=== PATIENT | female | born 1965 | race Caucasian/White ===

== ENCOUNTER 2018-11-12 16:35 | Inpatient (IN) | payer SELFPAY ==
--- NOTE | 2018-11-12 17:17 | RAD ---
PORTABLE CHEST: HISTORY: Cough. FINDINGS: Lungs appear clear of infiltrate. Vascular markings up-per normal. Heart size within normal range. No significant change from a film taken earlier today at 2:01 p.m. IMPRESSION: No acute finding or interval change. POS: TERESITAH
[2018-11-12] MEDS ORDERED: Norepinephrine 8 MG/0.9% NS 250 ML ONE (18:37)
[2018-11-12 18:50] VITALS: BMI 21.2
[2018-11-12] MEDS ORDERED: Norepinephrine 8 MG/250 ML BAG IVPB PRN (18:59)
[2018-11-12] MEDS ORDERED: guaiFENesin 100 MG/5 ML UDCUP PO PRN (20:21)
[2018-11-12] MEDS ORDERED: Acetaminophen 325 MG TAB PO PRN ×2 (20:21→20:41)
[2018-11-12] MEDS ORDERED: Albuterol Sulfate 1.25 MG/3 ML NEB NEB PRN (20:21)
[2018-11-12] MEDS ORDERED: Ondansetron PF 4 MG/2 ML Vial IVP PRN (20:21)
[2018-11-12] MEDS ORDERED: Melatonin 3 MG TAB PO PRN (20:21)
[2018-11-12] MEDS ORDERED: Bisacodyl 5 MG TAB PO PRN (20:21)
[2018-11-12] MEDS ORDERED: Norepinephrine 8 MG/0.9% NS 250 ML IVPB SCH (20:30)
[2018-11-12] MEDS ORDERED: Sodium Chloride 0.9% 1,000 ML IV SCH (20:30)
[2018-11-12] MEDS ORDERED: Vancomycin HCl 1.75 GM in Sodium Chloride 0.9% 250 ML 250 ML IVPB SCH (21:00)
[2018-11-12] MEDS ORDERED: Potassium Chloride 40 MEQ in Premix Bag 1 BAG IVPB SCH (21:00)
[2018-11-12 21:19] LABS: CKMB 16.8 ng/mL (0-6.6)
--- NOTE | 2018-11-12 21:35 | HP ---
PRIMARY CARE PHYSICIAN: Dr. Jethro Diaz. CHIEF COMPLAINT: Dehydration and not feeling well. HISTORY OF PRESENT ILLNESS: The patient is a 53-year-old female with past medical history of hypertension and intermittent asthma, who was transferred from [place] for UTI and septic shock. The patient reports that she has not been feeling well since Monday, complained about dehydration and dry mouth and reports that she has not been able to urinate since then. The patient also reported nausea and vomiting. The patient reports mild shortness of breath. The patient reports that she uses inhaler once in a while. The patient takes metoprolol for her blood pressure medication. The patient was started on Levophed and given vancomycin and Rocephin in the ER. PAST MEDICAL HISTORY: Hypertension and intermittent asthma. PAST SURGICAL HISTORY: Gallbladder removed. SOCIAL HISTORY: The patient smokes less than half a pack per day. Denies alcohol or drug use. FAMILY HISTORY: Positive for cancer in mother and father, specifically lung cancer and bone cancer. ALLERGIES: NAPROXEN. CURRENT MEDICATION: Includes metoprolol and trazodone at bedtime. REVIEW OF SYSTEMS: A 10-point review of system negative other than mentioned in the HPI. PHYSICAL EXAMINATION: VITAL SIGNS: The patient's blood pressure 106/62, pulse 117, respiration rate 26, temperature 98.4, and sat 94% on room air. GENERAL: The patient is alert and appears to be a bit more dehydrated, but she is cooperative and able to answer all my questions. HEAD: Atraumatic. EARS, NOSE, AND THROAT: No discharge or bleeding noted. Mouth appears to be dry. NECK: No lymphadenopathy noted. EYES: Extraocular movement intact. HEART: Regular rate and rhythm. No murmurs, rubs, or gallops. PULMONARY: Clear bilaterally. No wheezes or rubs noted. ABDOMEN: Soft, nontender. Bowel sounds are positive. : The patient has a Farrell. EXTREMITIES: Lower extremity examination, the patient appeared to have erythema on her heel. The patient also appeared to have erythema in her coccygeal area. NEUROLOGIC: The patient is alert and cooperative. SKIN: Other than mentioned in the extremity examination, negative. LABORATORY DATA: White blood cell count 23, hemoglobin 14.7, hematocrit 44.4, and platelets 194. Sodium 130, potassium 3.3, chloride 93, bicarb 14, anion gap 26, creatinine 1.99, glucose 120, AST 99, and ALT 123. The alkaline phosphatase 509. Urinalysis positive for protein, ketones, moderate blood, nitrites negative, leukocyte esterase negative, wbc positive, squamous epithelial positive, transitional epithelial positive, bacteria positive. Lactic acid 3.3. Troponin 0.01. Chest x-ray negative for acute cardiopulmonary abnormalities. ASSESSMENT: 1. Septic shock, likely due to urinary tract infection. 2. Lactic acidosis. 3. Metabolic acidosis. 4. Leukocytosis. 5. Hyponatremia. 6. Hypokalemia. 7. Acute kidney injury. 8. Transaminitis. 9. Hypertension. 10. Intermittent asthma. 11. Cough. PLAN: The patient's septic shock likely from urinary tract infection. Will suspect pyelonephritis at this point. The patient was started on Levophed and still is on the drip. We will continue Levophed at this point. The patient was given 5 L of fluids in the ER. We will continue IV fluids. We will continue vancomycin and Zosyn. Follow up cultures. The womens health nurse practitioner was consulted as patient is in septic shock. The patient's lactic acid and transaminitis likely from her septic shock. We will continue to follow on the labs and continue IV fluids. The patient's creatinine elevated at 1.99. Baseline unknown, but suspect the patient is having acute kidney injury likely due to post renal obstruction. The patient may have ATN as well. We will continue IV fluids. We will continue Farrell at this point. We will get an ultrasound renal and labs in the morning. Hypertension. We will hold home metoprolol due to patient being in septic shock. Intermittent asthma. We will add albuterol p.r.n. Cough likely from dry mouth and dehydration. Chest x-ray negative for acute infection. Physical examination also negative as well. Will add Robitussin p.r.n. at this point. We will continue home trazodone for insomnia. We will add melatonin p.r.n. as well. Replete electrolyte as needed. The patient is full code. Medical [id number], daughter. DVT prophylaxis, heparin. Wound Care consult placed for erythema noted on extremities and coccygeal. Job ID: [id number]
[2018-11-12] MEDS: traZODone HCl 50 MG TAB PO PRN (21:52)
[2018-11-12] MEDS: Sodium Chloride 0.9% 1,000 ML IV SCH (21:53)
[2018-11-12 21:57] LABS: Lactic Acid 3.3 mmol/L (0.5-2.2)
[2018-11-12] MEDS ORDERED: Diabetic Tussin 200 MG/10 ML UDCUP PO PRN (22:00)
[2018-11-12] MEDS: Heparin 5,000 UNITS/ML VIAL SC SCH (22:10)
[2018-11-12] MEDS: Nicotine 14 MG PATCH TD SCH (22:10)
[2018-11-13 04:58] LABS: Band 6 % (5-11); Hemoglobin 11.5 g/dL (12.0-16.0); Lymphocytes 2 % (21-51); MDiff Complete? YES; Mean Corpuscular HGB CONC 32.3 g/dL (32.0-36.0); Mean Corpuscular Hemoglobin 30.8 pg (27.0-31.0); Mean Corpuscular Volume 95.3 fL (78.0-98.0); Mean Platelet Volume 7.8 fL (7.4-10.4); Monocytes 9 % (0-10); Neutrophil 83 % (42-75); Platelet Count 114 thou/uL (130-400); Platelet Morphology Comment Appears Decreased; RBC Distribution Width 13.1 % (11.5-14.5); RBC Morphology Normal; Red Blood Cell (RBC) Count 3.73 mill/uL (4.20-5.40); White Blood Cell (WBC) Count 38.1 thou/uL (4.8-10.8)
[2018-11-13 05:01] LABS: ALT (SGPT) 152 U/L (8-55); AST (SGOT) 170 U/L (5-34); Alkaline Phosphatase 258 U/L (40-150); Anion Gap 15 mmol/L (10-20); BUN (Urea Nitrogen) 21 mg/dL (9.8-20.1); Bilirubin, Direct 3.1 mg/dL (0.1-0.3); Bilirubin, Total 3.8 mg/dL (0.2-1.2); Calc. Creatinine Clearance 49 mL/min (70-130); Calcium 7.6 mg/dL (7.8-10.44); Carbon Dioxide 14 mmol/L (22-29); Chloride 106 mmol/L (98-107); Estimated GFR-MDRD 48; Glucose 85 mg/dL (70-105); Potassium 4.2 mmol/L (3.5-5.1); Protein, Total 5.2 g/dL (6.0-8.3); Sodium 131 mmol/L (136-145)
[2018-11-13 05:23] LABS: HBCM Index 0.06 S/CO (0-0.79); HBSAg Index 0.21 S/CO (0-0.99); Hep A IgM AB Non-Reactive (NonReactive); Hep A IgM S/CO 0.11 S/CO (0-0.79); Hep B Surf Ag Non-Reactive S/CO (NonReactive); Hep C IgG Ab Non-Reactive (NonReactive); Hep C Index 0.03 S/CO (0-0.79); Hepatitis B Core IgM Abs Non-Reactive (NonReactive)
[2018-11-13 05:44] LABS: Lactic Acid 1.7 mmol/L (0.5-2.2)
[2018-11-13] MEDS: Sodium Chloride 0.9% 1,000 ML IV SCH ×2 (05:58→17:07)
--- NOTE | 2018-11-13 06:44 | ULT ---
GALLBLADDER ULTRASOUND: INDICATIONS: Elevated liver functions. FINDINGS: There is heterogeneous echotexture of the liver, with increased echogenicity present. The gallbladde r is surgically absent. There is evidence of choledocholithiasis with dilatation of the surrounding biliary ductal system. No ascites is seen. The imaged aspects of the right kidney do not reveal rudi dence of hydronephrosis. IMPRESSION: 1. Sonographic findings of choledocholithiasis. The patient is status post cholecystectomy. Recomm end followup with a gastroenterology consultation. 2. Heterogeneous echotexture of the liver with areas of increased echogenicity that could either rel ate to artifact or could represent geographic areas of hepatic steatosis. POS: NICOLAS
--- NOTE | 2018-11-13 06:45 | ULT ---
BILATERAL RENAL ULTRASOUND: INDICATIONS: Acute renal insufficiency. FINDINGS: The right kidney is approximately 11 cm in length, and the left kidney is approximately 10 cm in hilary th. There is no overt hydronephrosis or suspicious renal lesion. The urinary bladder is decompresse d, limiting assessment. IMPRESSION: No overt hydronephrosis of either kidney. POS: TEJINDERK
[2018-11-13] MEDS: Heparin 5,000 UNITS/ML VIAL SC SCH ×3 (08:55→21:26)
--- NOTE | 2018-11-13 09:02 | PDOC.PN ---
- Subjective Encounter Start Date: 11/13/18 Encounter Start Time: 09:00 Ms. Olson was seen today in follow-up of Choledocholithiasis, with sepsis. She continues to have some right upper quadrant pain. She also complains of severe dry mouth. - Objective Resuscitation Status - Order Detail: 11/12/18 20:20 Resuscitation Status Routine Resuscitation Status: FULL: Full Resuscitation MAR Reviewed: Yes Vital Signs & Weight: Vital Signs (12 hours) Temp 11/13/18 04:00 98.0 F 11/13/18 00:00 97.8 F Weight Weight 123 lb 10.869 oz Most Recent Monitor Data Heart Rate from ECG 88 NIBP 125/94 NIBP BP-Mean 104 Respiration from ECG 28 SpO2 97 I&O: 11/12/18 11/13/18 11/14/18 06:59 06:59 06:59 Intake Total 1055 Output Total 590 Balance 465 Result Diagrams: 11/13/18 04:33 11/13/18 04:33 Phys Exam - Physical Examination HEENT: PERRLA Respiratory: no wheezing, no rales, no rhonchi, clear to auscultation bilateral Cardiovascular: RRR, no significant murmur, no rub Gastrointestinal: soft, no distention, positive bowel sounds RUQ tenderness Musculoskeletal: no edema, pulses present Dx/Plan (1) Choledocholithiasis Code(s): K80.50 - CALCULUS OF BILE DUCT W/O CHOLANGITIS OR CHOLECYST W/O OBST Status: Acute (2) Sepsis Code(s): A41.9 - SEPSIS, UNSPECIFIED ORGANISM Status: Acute (3) UTI (urinary tract infection) Status: Chronic (4) Hypertension Code(s): I10 - ESSENTIAL (PRIMARY) HYPERTENSION Status: Chronic (5) Asthma Code(s): J45.909 - UNSPECIFIED ASTHMA, UNCOMPLICATED Status: Acute - Plan * Choledocholithiasis with sepsis- Zosyn was added, wll continue Vancomycin, and can discontinue Rocephin, - Lactic acid level has improved- will continue to trend her CBC * GI consult for possible ERCP * HTN- blood pressure has been low, and is being supported with Levaphed * Asthma- stable- PRN Nebs are available * UTI- continue the current antibiotics, and await culture results .
--- NOTE | 2018-11-13 09:07 | CON ---
DATE OF CONSULTATION: HISTORY OF PRESENT ILLNESS: A 53-year-old female from the [facility]. 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 Smokes half pack a day. In the ER, she was hypotensive, was started on Levophed. Given 2 g of Rocephin and 1 g of vancomycin. Ultrasound of the abdomen shows evidence of cholelithiasis. She had previous cholecystectomy. This morning, she is still having significant abdominal pain, but less nausea and vomiting. She has a Farrell catheter and she is making urine. PAST MEDICAL HISTORY: Apparently, asthma, smoker, and hypertension. PAST SURGICAL HISTORY: Cholecystectomy. SOCIAL HISTORY: Alcohol, none. Drugs, none. Tobacco, as noted. MEDICATIONS: Home medicine includes trazodone 50, metoprolol 50 twice a day. She has a rescue inhaler. ALLERGIES: ALEVE CAUSES ANAPHYLAXIS. REVIEW OF SYSTEMS: 10-point negative. PHYSICAL EXAMINATION: VITAL SIGNS: Saturations are 98% on room air, pulse is 94, blood pressure 130/70, respiratory rate 19. CHEST: Decreased breath sounds. No wheezing. CARDIAC: Normal S1, S2. No gallops. ABDOMEN: Distended, very tender. LABORATORY DATA: White count 37061 , H and H 11 and 35, platelet count is low at 114. She has big bandemia, BUN and creatinine at 21 and 1.18. Her hepatitis profile was negative. IMPRESSION: 1. Sepsis syndrome secondary to choledocholithiasis. 2. Azotemia. 3. Urinary tract infection. PLAN: She is on ceftriaxone, vancomycin and Levophed. Continue hydration. GI consult as outlined. We will follow. Consultation note, 70 minutes, 50% direct patient care. Job ID: [id number]
[2018-11-13] MEDS ORDERED: Morphine 4 MG/ML VIAL SLOW IVP PRN (09:26)
[2018-11-13] MEDS: Morphine 4 MG/ML VIAL SLOW IVP PRN ×3 (10:31→21:26)
[2018-11-13] MEDS: Piperacillin/Tazobactam 3.375 GM in Sodium Chloride 0.9% 100 ML IVPB SCH ×3 (10:32→21:27)
[2018-11-13] MEDS: Vancomycin HCl 750 MG in Sodium Chloride 0.9% 250 ML 250 ML IVPB SCH (11:46)
[2018-11-13] MEDS ORDERED: Iothalamate Meglumine 60% 50 ML VIAL FS ONE (13:58)
[2018-11-13] MEDS ORDERED: Fentanyl 100 MCG/2 ML VIAL ONE (14:00)
--- NOTE | 2018-11-13 14:41 | CON ---
DATE OF CONSULTATION: 11/13/2018 REASON FOR CONSULTATION: Abnormal LFTs and common bile duct stone. HISTORY OF PRESENT ILLNESS: Ms. Neisha Olson is a very pleasant 53-year-old female, who we hospitalized overnight with difficulty urination, possible UTI. The patient had abdominal sonogram done, which revealed a dilated CBD and also a filling defect of CBD. The patient came to the ER because of some difficulty urination. She was not able to urinate and the quantity was small. Apparently, she only drinks enough fluids. Subsequently, after arrival he started to have abdominal pain. The pain is over the right upper quadrant epigastric area. The patient has abdominal pain off and on with some nausea for over several months now, although she sees Dr. Jethro Diaz, she did not bring it up to Dr. Diaz with abdominal pain. The patient also has some chills briefly off and on in the past. The patient has interesting medical history. She had a laparoscopic cholecystectomy, which was converted to open cholecystectomy several years ago for multiple gallstones. Apparently, she had common bile duct stone from same time. She was seen by Dr. Greene in [place], and had multiple ERCPs. Apparently, she has had 5 or 6 procedures. The stone was too large in the bile duct and he has multiple stones. Apparently, she had a stent placement done twice and also subsequently had another 2 subsequent ERCPs. Subsequently, the bile duct stone was completely cleared up. She has done well for the last at least 5 or 6 years. She has been having some abdominal pain with nausea off and on. The pain was in epigastric area and usually lasts for several minutes and goes away. The patient has had no dark urine or light-colored stools. At the present time, she has mild abdominal pain and no nausea. No fever. No relevant history. ALLERGIES: ALEVE. SOCIAL HISTORY: The patient is a smoker. She does not drink alcohol. MEDICAL ILLNESSES: 1. Hypertension. 2. Intermittent asthma. 3. Common bile duct stone with multiple ERCPs in the past, last one was done 6 years ago, I believe, as per the patient. Apparently, she has had 2 bile duct stent placement and subsequently was removed. SURGERIES: As listed in the medical illnesses section. FAMILY HISTORY: Mother with throat cancer, lung cancer. Grandfather had bone cancer on father's side. MEDICATIONS: List reviewed. REVIEW OF SYSTEMS: A 10-point system review. PRECISION DYER: No TIA. No syncope. No chronic headache. No seizure disorder. RESPIRATORY SYSTEM: No history of chronic cough, hemoptysis, or dyspnea. She has history of intermittent asthma . CARDIOVASCULAR SYSTEM: No chest pain. No palpitation. No dyspnea, orthopnea, or PND. GI: Abdominal pain with mild nausea. : No dysuria, hematuria, or frequency of urination. MUSCULOSKELETAL: Not known. ENDOCRINE: Not known. HEMATOLOGIC: Not known. PHYSICAL EXAMINATION: GENERAL: She is a very pleasant female, appears very comfortable. She is thin built. She is in no distress. VITAL SIGNS: From today; temperature is 97 degrees Fahrenheit, pulse is 88, blood pressure is 125/94. HEENT: Conjunctivae clear. NECK: Supple. No adenitis or thyromegaly noted. CARDIOVASCULAR SYSTEM: First and second heart sounds heard. LUNGS: Clear to auscultation. ABDOMEN: Soft and nondistended. Abdomen is tender over the right upper quadrant epigastric area. No rebound or guarding. Bowel sounds normal. EXTREMITIES: Reveal no edema. LABORATORY DATA: WBC 38,100, hemoglobin is 11.5, hematocrit 35.6, MCV is 95.3, platelet count 114,000, polymorphs 83, bands 6, lymphocytes 2, monocytes 9. Chemistry panel, lytes are normal. BUN is 21, creatinine 1.18, bilirubin 3.8, AST 170, ALT 152, alkaline phosphatase 258. CPK-MB 16.8. Troponin 0.033. Albumin 3. Abdominal sonogram done shows dilation of the common bile duct and there is no measurement of CBD except the report shows dilated. There is also a filling defect in the bile duct. CLINICAL IMPRESSION: 1. Abdominal pain and nausea and evidence of cholangitis. The patient common bile duct stone and biliary obstruction. The patient had similar episodes about 7 years ago and had open cholecystectomy. She has had multiple ERCPs done with stent placement 7 years ago. 2. Hypertension. 3. Intermittent asthma. PLAN: 1. N.p.o. 2. IV antibiotics. 3. ERCP later on today and I will make further recommendation. The patient has had multiple ERCPs and she is familiar with the ERCP procedure. Anyway, I explained to her about the potential risks like bleeding, perforation, and pancreatitis. She understood and is agreeable. Job ID: [id number]
[2018-11-13] MEDS ORDERED: Glycopyrrolate 0.2 MG/ML 5 ML SYRINGE ONE (15:17)
[2018-11-13] MEDS ORDERED: Dexamethasone 20 MG/5 ML VIAL ONE (15:17)
[2018-11-13] MEDS ORDERED: Rocuronium Bromide 10 MG/ML (10ML VIAL) ONE (15:17)
[2018-11-13] MEDS ORDERED: PROPOFOL 200 MG/20 ML VIAL ONE (15:17)
[2018-11-13] MEDS ORDERED: Lidocaine 1% PF 5 ML VIAL ONE (15:17)
[2018-11-13] MEDS ORDERED: PHENYLEPHRINE-NS 100 MCG/ML 10 ML SYRINGE ONE (15:17)
[2018-11-13] MEDS ORDERED: Ondansetron PF 4 MG/2 ML Vial ONE (15:17)
[2018-11-13] MEDS ORDERED: Promethazine HCl 25 MG/ML VIAL SLOW IVP PRN (15:27)
[2018-11-13] MEDS ORDERED: Promethazine HCl 25 MG/ML VIAL IM PRN (15:27)
--- NOTE | 2018-11-13 17:27 | RAD ---
ERCP INTRAOPERATIVE FLUOROSCOPY 11/13/18 HISTORY: Biliary obstruction with bone. FINDINGS/IMPRESSION: Intraoperative fluoroscopy was provided for ERCP as performed by Dr. Matthew. Spot fluoroscopic ramakrishna ges show catheterization and contrast opacification of a dilated common bile duct up to 11 mm. A lobu lar filling defect at the level of transition of caliber of the duct is estimated at 10 mm. Some cont rast is seen within the decompressed central duct. Final image shows radiopaque stent with decompression of the upper biliary system. Findings were discussed with Dr. Matthew at 1636 hours. Code CR POS: SJ
[2018-11-13] MEDS ORDERED: cefTRIAXone\\ROCEPHIN 2 GM in Sodium Chloride 0.9% 100 ML IVPB SCH (21:00)
[2018-11-13] MEDS: Nicotine 14 MG PATCH TD SCH (21:20)
[2018-11-13] MEDS: traZODone HCl 50 MG TAB PO PRN (21:27)
[2018-11-13] MEDS: Famotidine/PF 20 mg/2ml Vial SLOW IVP SCH (21:27)
[2018-11-14] MEDS: Sodium Chloride 0.9% 1,000 ML IV SCH ×2 (03:47→13:30)
[2018-11-14] MEDS: Piperacillin/Tazobactam 3.375 GM in Sodium Chloride 0.9% 100 ML IVPB SCH ×4 (03:48→21:29)
[2018-11-14 04:33] LABS: Band 37 % (5-11); Hemoglobin 10.3 g/dL (12.0-16.0); Lymphocytes 3 % (21-51); MDiff Complete? YES; Mean Corpuscular HGB CONC 32.6 g/dL (32.0-36.0); Mean Corpuscular Hemoglobin 31.1 pg (27.0-31.0); Mean Corpuscular Volume 95.5 fL (78.0-98.0); Mean Platelet Volume 8.1 fL (7.4-10.4); Monocytes 1 % (0-10); Neutrophil 59 % (42-75); Platelet Count 90 thou/uL (130-400); Platelet Morphology Comment Appears Decreased; RBC Distribution Width 12.9 % (11.5-14.5); Red Blood Cell (RBC) Count 3.31 mill/uL (4.20-5.40); White Blood Cell (WBC) Count 19.6 thou/uL (4.8-10.8)
[2018-11-14 04:42] LABS: ALT (SGPT) 141 U/L (8-55); AST (SGOT) 110 U/L (5-34); Albumin 2.8 g/dL (3.5-5.0); Alkaline Phosphatase 222 U/L (40-150); Bilirubin, Direct 1.1 mg/dL (0.1-0.3); Bilirubin, Total 1.6 mg/dL (0.2-1.2)
--- NOTE | 2018-11-14 08:24 | PRG ---
DATE OF SERVICE: 11/14/2018 SUBJECTIVE: This morning, she is awake, alert, and responsive. She is better. Abdominal pain is improved. OBJECTIVE: VITAL SIGNS: Saturations are 100% on room air, blood pressure 120\72. CHEST: Decreased breath sounds. No wheezing. CARDIAC: Normal S1, S2. No gallop _no murmers. LABORATORY DATA: White count is down to 19,000, H and H of 10 and 30. count is 90,000 low. Liver function is still slightly elevated. IMPRESSION: 1. Sepsis secondary to cholangitis. 2. Hypotension, resolved. PLAN: Await culture report. Continue PT, supportive care, diet. We will follow while in the ICU. Job ID: [id number] [facility]
[2018-11-14 08:31] LABS: Anion Gap 11 mmol/L (10-20); BUN (Urea Nitrogen) 16 mg/dL (9.8-20.1); Calc. Creatinine Clearance 64 mL/min (70-130); Calcium 8.1 mg/dL (7.8-10.44); Carbon Dioxide 18 mmol/L (22-29); Chloride 109 mmol/L (98-107); Estimated GFR-MDRD 65; Glucose 129 mg/dL (70-105); Sodium 134 mmol/L (136-145)
[2018-11-14] MEDS: Heparin 5,000 UNITS/ML VIAL SC SCH ×3 (08:50→20:24)
[2018-11-14] MEDS: Famotidine/PF 20 mg/2ml Vial SLOW IVP SCH ×2 (08:52→20:24)
--- NOTE | 2018-11-14 11:03 | OP ---
DATE OF PROCEDURE: 11/13/2018 OPERATIVE PROCEDURE: 1. Endoscopic retrograde cholangiopancreatography with attempted stone extraction of balloon. 2. Endoscopic retrograde cholangiopancreatography with a 10 x 9 biliary stent placement. PREOPERATIVE DIAGNOSES: Abdominal pain, cholangitis, retained common bile duct stone. POSTOPERATIVE DIAGNOSES: 1. Large stone in the mid common bile duct. 2. Previous sphincterotomy with wide-open papilla. 3. Dilated proximal bile ducts. DESCRIPTION OF PROCEDURE: The patient was intubated and was given sedation by Anesthesia Department. A bite block was placed. The patient was given sedation by Anesthesia Department. The patient was transferred in stretcher to the fluoroscopy table. The patient was initially placed in left lateral position and turned on her stomach later on. A [employer] video duodenoscope under direct vision was advanced down the oropharynx past the GE junction, possible pylorus into the descending duodenum. The patient had 3 ulcerations at the pyloric and around the descending duodenum. The patient has had a previous papillotomy and papilla was wide open. There was good biliary drainage noted. The papilla was cannulated with a papillotome very easily. A guidewire was advanced into the common bile duct. Injection of contrast shows a large stone at the mid common bile duct and also the proximal duct appeared dilated. The distal duct was really not dilated. The papillotome was exchanged with the biliary balloon size 15 mm, which was advanced over the guidewire into the proximal common bile duct and catheter withdrawn. Two or three tiny pieces of stones came out, but I could not really remove the big stone. This maneuver was repeated several times. Subsequently, I placed a stent in the bile duct. The catheter was advanced into the common bile duct with difficulty. The biliary stent size 10 x 9 mm placed without difficulty. was obtained, confirmed proper position of the stent. The stomach decompressed and the scope removed. RECOMMENDATIONS: 1. Discontinue n.p.o. 2. Diet as tolerated. 3. We will plan for repeat ERCP in the next 4 weeks . Job ID: [id number]
--- NOTE | 2018-11-14 11:05 | PDOC.PN ---
- Subjective Encounter Start Date: 11/14/18 Encounter Start Time: 11:03 Ms. Olson was seen today in follow-up of choledocholithiasis. She had ERCP and STENT placement yesterday. She says she is feeling much better today. She does not have any abdominal pain, and she has tolerated clear liquids without pain or nausea. - Objective Resuscitation Status - Order Detail: 11/12/18 20:20 Resuscitation Status Routine Resuscitation Status: FULL: Full Resuscitation MAR Reviewed: Yes Vital Signs & Weight: Vital Signs (12 hours) Temp Pulse Ox 11/14/18 08:00 99.3 F 98 11/14/18 04:00 97.7 F Weight Admit Weight 123 lb Weight 123 lb 10.869 oz Most Recent Monitor Data Heart Rate from ECG 76 NIBP 109/72 NIBP BP-Mean 84 Respiration from ECG 21 SpO2 100 I&O: 11/13/18 11/14/18 11/15/18 06:59 06:59 06:59 Intake Total 1055 2799 450 Output Total 590 1840 240 Balance 465 959 210 Result Diagrams: 11/14/18 04:15 11/14/18 04:15 Phys Exam - Physical Examination HEENT: PERRLA Respiratory: no wheezing, no rales, no rhonchi, clear to auscultation bilateral Cardiovascular: RRR, no significant murmur, no rub Gastrointestinal: soft, non-tender, no distention, positive bowel sounds Musculoskeletal: no edema, pulses present Dx/Plan (1) Choledocholithiasis Code(s): K80.50 - CALCULUS OF BILE DUCT W/O CHOLANGITIS OR CHOLECYST W/O OBST Status: Acute (2) Sepsis Code(s): A41.9 - SEPSIS, UNSPECIFIED ORGANISM Status: Acute (3) UTI (urinary tract infection) Status: Chronic (4) Hypertension Code(s): I10 - ESSENTIAL (PRIMARY) HYPERTENSION Status: Chronic (5) Asthma Code(s): J45.909 - UNSPECIFIED ASTHMA, UNCOMPLICATED Status: Acute - Plan * Choledocholithiasis- she is s/p ERCP and and STENT placement. Her bilirubin level has improved as well as her WBC count. She is also symptomatically improved * HTN- blood pressure is stable * Sepsis- improved- 1/3 blood cultures is growing Klebsiella- will continue Zosyn * UTI- continue Zosyn- urine cultures are negative so far * Asthma- clinically stable.
[2018-11-14 12:07] LABS: Vancomycin, Trough 5.9 ug/mL
[2018-11-14] MEDS: Vancomycin HCl 750 MG in Sodium Chloride 0.9% 250 ML 250 ML IVPB SCH ×3 (13:10→23:33)
[2018-11-14] MEDS: Nicotine 14 MG PATCH TD SCH (20:36)
[2018-11-14] MEDS: Morphine 4 MG/ML VIAL SLOW IVP PRN (21:19)
[2018-11-14] MEDS: traZODone HCl 50 MG TAB PO PRN (21:35)
[2018-11-15] MEDS: Piperacillin/Tazobactam 3.375 GM in Sodium Chloride 0.9% 100 ML IVPB SCH ×3 (04:27→15:52)
[2018-11-15 07:14] LABS: Hemoglobin 10.1 g/dL (12.0-16.0); Mean Corpuscular HGB CONC 32.9 g/dL (32.0-36.0); Mean Corpuscular Hemoglobin 30.7 pg (27.0-31.0); Mean Corpuscular Volume 93.1 fL (78.0-98.0); Mean Platelet Volume 8.1 fL (7.4-10.4); Platelet Count 114 thou/uL (130-400); Red Blood Cell (RBC) Count 3.28 mill/uL (4.20-5.40); White Blood Cell (WBC) Count 16.1 thou/uL (4.8-10.8)
[2018-11-15 07:20] LABS: Anion Gap 11 mmol/L (10-20); BUN (Urea Nitrogen) 14 mg/dL (9.8-20.1); Calc. Creatinine Clearance 69 mL/min (70-130); Calcium 8.6 mg/dL (7.8-10.44); Carbon Dioxide 21 mmol/L (22-29); Chloride 109 mmol/L (98-107); Estimated GFR-MDRD 70; Glucose 84 mg/dL (70-105); Potassium 3.6 mmol/L (3.5-5.1); Sodium 137 mmol/L (136-145)
[2018-11-15 08:29] LABS: ALT (SGPT) 112 U/L (8-55); AST (SGOT) 55 U/L (5-34); Albumin 2.9 g/dL (3.5-5.0); Alkaline Phosphatase 192 U/L (40-150); Bilirubin, Total 1.8 mg/dL (0.2-1.2); Protein, Total 5.1 g/dL (6.0-8.3)
[2018-11-15] MEDS: Famotidine/PF 20 mg/2ml Vial SLOW IVP SCH (08:42)
[2018-11-15] MEDS: Heparin 5,000 UNITS/ML VIAL SC SCH ×2 (08:42→15:09)
--- NOTE | 2018-11-15 08:57 | PRG ---
DATE OF SERVICE: 11/14/2018 SUBJECTIVE: Neisha Olson is a very pleasant 53-year-old female, hospitalized after hypotension, shock, and also cholangitis. She had an ERCP with stent placement yesterday. She has a big stone in the common bile duct, which I could not remove. I was able to place a biliary stent yesterday and the stent seems to be good position for the stone. The patient is likely feeling better. No abdominal pain. No nausea or vomiting. She is tolerating diet today. She had regular diet today without abdominal pain or nausea. She has no complaints. PHYSICAL EXAMINATION: GENERAL: Appears comfortable. VITAL SIGNS: Pulse is 99, blood pressure 144/80. HEENT: Conjunctivae clear. CARDIOVASCULAR: Within normal limits. LUNGS: Within normal limits. ABDOMEN: Soft. No organomegaly. No tenderness. No masses. LABORATORY DATA: The lab data shows WBC dropping to 19,600, hemoglobin 10.3, hematocrit 31.6, platelet count is 90,000, polymorphs 59, bands are 37% which is difficult to explain as there is no fever and no abdominal pain. CLINICAL IMPRESSION: 1. Common bile duct stone. 2. Cholangitis. 3. Status post stent placement. RECOMMENDATIONS: 1. Continue antibiotics. 2. Follow up LFTs. 3. May consider discharge in the next 24 hours unless she has new abdominal complaints. The patient will come back to see me in the office in 2 weeks. We will plan to repeat ERCP in the next 3 to 4 weeks. May also consider starting patient on Ursodiol for stone prevention. Job ID: [id number]
--- NOTE | 2018-11-15 09:01 | PRG ---
DATE OF SERVICE: 11/15/2018 SUBJECTIVE: This morning, she is better, less pain. No shortness of breath. OBJECTIVE: VITAL SIGNS: Saturations are 98% on room air, respirations 16, pulse 71, temperature 97, blood pressure 163/89. CHEST: Decreased breath sounds. No wheezing. CARDIAC: Normal S1 . LABORATORY DATA: Her liver profile is improving. Her AST is down to 55. Lytes are normal. Renal function is normal. White count 16,000. All cultures are so far negative. ASSESSMENT: 1. Abdominal sepsis. 2. Choledocholithiasis, status post stent. PLAN: Deescalate antibiotics. I would discontinue vancomycin. Continue Zosyn. Switch over to oral medication. Pulmonary/Critical Care will follow at a distance. Job ID: [id number]
[2018-11-15 09:16] LABS: Band 29 % (5-11); Lymphocytes 10 % (21-51); MDiff Complete? YES; Monocytes 1 % (0-10); Neutrophil 59 % (42-75); Platelet Morphology Comment Appears Decreased; Polychromasia SLIGHT = 2-3 cells (100X) (0-2/hpf); Reactive Lymphocytes 1 % (0-10)
[2018-11-15] MEDS: Vancomycin HCl 750 MG in Sodium Chloride 0.9% 250 ML 250 ML IVPB SCH (13:25)
--- NOTE | 2018-11-15 13:27 | PRG ---
DATE OF SERVICE: 11/15/2018 SUBJECTIVE: Neisha Olson is a 53-year-old hospitalized with abnormal LFTs, cholangitis, and choledocholithiasis. She underwent ERCP with stent placement 2 days ago. Unfortunately, the stone could not be removed. The patient had stent placement done and she had done well after the stent placement. Her LFTs are trending down. She has no abdominal pain. No nausea or vomiting. She is tolerating a diet. She has remained afebrile. PHYSICAL EXAMINATION: VITAL SIGNS: Afebrile, pulse is 71, and blood pressure 163/89. CARDIOVASCULAR: First and second heart sounds heard. LUNGS: Clear to auscultation. ABDOMEN: Soft. No organomegaly. No tenderness. No masses. LABORATORY DATA: From today, lytes are normal. BUN is 14, creatinine 0.85. The liver function tests; AST is down to 55, ALT 112, alkaline phosphatase 192, and bilirubin 1.8. The urine culture has no growth. Blood culture actually no growth. RECOMMENDATIONS: 1. May discontinue IV antibiotics and transition over to p.o. antibiotics, either Levaquin or Augmentin. 2. Consider starting the patient on ursodiol 300 mg p.o. twice a day. 3. From GI standpoint, she can probably go home in the next 24 hours. She will come back to me in 2 weeks for a followup visit. Job ID: [id number]
--- NOTE | 2018-11-15 15:17 | PDOC.PN ---
- Subjective Encounter Start Date: 11/15/18 Encounter Start Time: 15:15 Ms. Olson was seen today in follow-up of choledocholithiasis. She says she is going to have a nervous breakdown if she doesn't get discharged from the hospital today. - Objective Resuscitation Status - Order Detail: 11/12/18 20:20 Resuscitation Status Routine Resuscitation Status: FULL: Full Resuscitation MAR Reviewed: Yes Vital Signs & Weight: Vital Signs (12 hours) Temp Pulse Resp BP Pulse Ox 11/15/18 12:43 97.9 F 82 16 163/90 H 97 11/15/18 08:45 99 11/15/18 07:58 97.6 F 71 16 163/89 H 99 11/15/18 04:00 97.7 F 85 16 138/90 96 Weight Admit Weight 123 lb Weight 123 lb 10.869 oz Most Recent Monitor Data Heart Rate from ECG 80 NIBP 144/87 NIBP BP-Mean 106 Respiration from ECG 18 SpO2 99 I&O: 11/14/18 11/15/18 11/16/18 06:59 06:59 06:59 Intake Total 2799 3754 Output Total 1840 605 Balance 959 3149 Result Diagrams: 11/15/18 06:33 11/15/18 06:33 Phys Exam - Physical Examination HEENT: PERRLA Respiratory: no wheezing, no rales, no rhonchi, clear to auscultation bilateral Cardiovascular: RRR, no significant murmur, no rub Gastrointestinal: soft, non-tender, no distention, positive bowel sounds Musculoskeletal: no edema Dx/Plan (1) Choledocholithiasis Code(s): K80.50 - CALCULUS OF BILE DUCT W/O CHOLANGITIS OR CHOLECYST W/O OBST Status: Acute (2) Sepsis Code(s): A41.9 - SEPSIS, UNSPECIFIED ORGANISM Status: Acute (3) UTI (urinary tract infection) Status: Chronic (4) Hypertension Code(s): I10 - ESSENTIAL (PRIMARY) HYPERTENSION Status: Chronic (5) Asthma Code(s): J45.909 - UNSPECIFIED ASTHMA, UNCOMPLICATED Status: Acute - Plan * Choledocholithiasis- patient is s/p ERCP and STENT placement * Will discharge home today * She will need to follow-up in [address] Sweeney for repeat CBC * Follow-up in [address] Matthew
[2018-11-15 16:44] VITALS: BP 153/96; TEMP 98.2
--- NOTE | 2018-11-16 03:48 | DIS ---
DATE OF ADMISSION: 11/12/2018 DATE OF DISCHARGE: 11/15/2018 PRIMARY CARE PHYSICIAN: Dr. Diaz. DISCHARGE DISPOSITION: Home. PRIMARY DISCHARGE DIAGNOSES: 1. Choledocholithiasis. 2. Severe sepsis with septic shock. 3. Hypertension. 4. Asthma. 5. Generalized anxiety. 6. Urinary tract infection. DISCHARGE MEDICATIONS: Include, 1. Levaquin 500 mg daily. 2. Desyrel 50 mg at bedtime. 3. Metoprolol 50 mg twice a day. PROCEDURES DONE DURING THE ADMISSION: The patient had an ERCP with stent placement. The patient also had an abdominal ultrasound showing findings of choledocholithiasis and post cholecystectomy changes. There was some heterogeneity of the liver which could represent artifact or hepatic steatosis. The patient had a renal ultrasound showing no hydronephrosis of either kidney. CODE STATUS: Full code. ALLERGIES: NAPROSYN. HOSPITAL COURSE: Ms. Olson is a pleasant 53-year-old female who presented to the emergency room with severe abdominal pain and anuria. She was found to be in septic shock. She was hypotensive with leukocytosis and elevated white blood cell count of 238,100. Due to the extensive right upper quadrant pain, an abdominal ultrasound was done and was found that she had choledocholithiasis. She says she has had previous episodes with severe abdominal pain due to choledocholithiasis and the need for ERCP and stone extraction. GI was consulted and she underwent urgent ERCP. The stone was unable to be extracted, but a stent was placed and she did have improvement in her white blood cell count as well as her bilirubin and transaminases. Her blood pressure recovered as well as her renal function. Blood and urine cultures in this hospital were negative. However, she had a blood culture from the outside hospital, which grew Klebsiella pneumoniae which was pansensitive. The plan was to keep the patient one more day even though she was improving dramatically. However, the patient was very anxious about leaving. 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 She said that she was about to have a nervous breakdown and she did not leave the hospital today. She became tearful and crying. Therefore, since she is clinically stable and afebrile, we will go ahead and let the patient go home today. She was instructed that she would need to follow up with her primary care physician at the beginning of next week in order to have a repeat CBC obtained and also with Dr. Arriaza in 2 weeks as instructed. The plan was that the patient would have a repeat ERCP hopefully with crushing of the stone and basket extraction at a later date. Job ID: [id number]
== END 2018-11-15 18:24 | disposition home or self-care (01) | DRG 871 ==
LOC: ERS 16:35 → CCU 17:04 → T4-B 11-14 15:22
PROVIDERS: ADMIT Emergency Medicine; ATTEND Emergency Medicine
PROC: 0F798DZ Dilation of Common Bile Duct with Intraluminal Device, Via Natural or Artificial Opening Endoscopic (ICD-10-PCS; principal; 2018-11-13)
PROC: BF101ZZ Fluoroscopy of Bile Ducts using Low Osmolar Contrast (ICD-10-PCS; 2018-11-13)
DX: A41.9 Sepsis, unspecified organism (principal); R65.21 Severe sepsis with septic shock; N39.0 Urinary tract infection, site not specified; E87.2 Acidosis; E87.1 Hypo-osmolality and hyponatremia; N17.9 Acute kidney failure, unspecified; E86.0 Dehydration; I10 Essential (primary) hypertension; K80.50 Calculus of bile duct without cholangitis or cholecystitis without obstruction; J45.20 Mild intermittent asthma, uncomplicated; D72.829 Elevated white blood cell count, unspecified; G47.00 Insomnia, unspecified; F17.210 Nicotine dependence, cigarettes, uncomplicated; Z80.1 Family history of malignant neoplasm of trachea, bronchus and lung; Z80.8 Family history of malignant neoplasm of other organs or systems
CPT/HCPCS: 36415; 51702; 71045; 74330; 76705; 76770; 80048; 80074; 80076; 80202; 82553; 83605; 85025; 87086; 90471; 90686; 90732; 96365; G0008; G0009; J1100; J1644; J2001; J2270; J2405; J2543; J2704; J3010; J3370; J3480; J7050; J7620; Q9961; S0028

== ENCOUNTER 2018-11-16 17:48 | Observation (INO) | payer SELFPAY ==
[2018-11-16 19:50] LABS: Anion Gap 13 mmol/L (10-20); BUN (Urea Nitrogen) 8 mg/dL (9.8-20.1); Calc. Creatinine Clearance 0 mL/min (70-130); Calcium 8.6 mg/dL (7.8-10.44); Carbon Dioxide 26 mmol/L (22-29); Chloride 105 mmol/L (98-107); Estimated GFR-MDRD 74; Glucose 76 mg/dL (70-105); Potassium 3.5 mmol/L (3.5-5.1); Sodium 140 mmol/L (136-145)
[2018-11-16 19:55] LABS: Troponin I 0.042 ng/mL (< 0.028)
[2018-11-16] MEDS ORDERED: Acetaminophen 325 MG TAB PO PRN (21:00)
[2018-11-16] MEDS ORDERED: Ondansetron PF 4 MG/2 ML Vial IVP PRN (21:00)
[2018-11-16] MEDS ORDERED: Ondansetron ODT 4 MG TAB SL PRN (21:00)
[2018-11-16 21:17] VITALS: BMI 22.6
[2018-11-16] MEDS ORDERED: traZODone HCl 50 MG TAB PO SCH (22:45)
[2018-11-16] MEDS: Benzonatate 100 MG CAP PO PRN (23:00)
[2018-11-16] MEDS: Nitroglycerin 2% Ointment 1 INCH/1 GM Packet TOP SCH (23:00)
[2018-11-16 23:17] LABS: Troponin I 0.039 ng/mL (< 0.028)
--- NOTE | 2018-11-17 05:30 | HP ---
PRIMARY CARE PHYSICIAN: Dr. Jethro Diaz. CODE STATUS: Full code. TIME OF EVALUATION: 10:45 pm. CHIEF COMPLAINT: Chest pain. HISTORY OF PRESENT ILLNESS: This is a 53-year-old female patient with past medical history of recent admission for septic shock, insomnia, hypertension, asthma, came to the hospital after having chest pain that was in the middle of the chest, started around noon with no clear triggers. No alleviating factors. The patient reportedly has some exacerbation with deep breath. Symptoms have been reported as severe, substernal, radiation to the left arm. REVIEW OF SYSTEMS: CONSTITUTIONAL: No fever, chills, or generalized weakness. RESPIRATORY: No cough, sputum production, or shortness of breath. CARDIOVASCULAR: Chest pain. No palpitations. GASTROINTESTINAL: No nausea. No vomiting, diarrhea, or abdominal pain. VAULT WORKER: No dizziness, headache, or feeling lightheaded. GENITOURINARY: No burning on urination. EXTREMITIES: No leg swelling. All other systems were reviewed and negative except for the findings mentioned above. PAST MEDICAL HISTORY: As mentioned in the HPI. FAMILY HISTORY: Reviewed, noncontributory to current presentation. PAST SURGICAL HISTORY: Cholecystectomy, stent in bile duct x3. PSYCH HISTORY: Depression. SOCIAL HISTORY: No alcohol. No drug use. Smokes cigarettes on a daily basis. Lives in home alone. KNOWN ALLERGIES: Aleve. PHYSICAL EXAMINATION: VITAL SIGNS: On presentation, heart rate 86, respiratory rate was 16, temperature 98.6, oxygen saturation 100 on room air, blood pressure 169/91. GENERAL APPEARANCE: The patient is alert, oriented, not in acute distress. HEENT: Eyes, normal conjunctivae. Moist oral mucosa. Anicteric. No JVD. RESPIRATORY: Bilateral air entry. No rales. No wheezes. Symmetric expansion. CARDIOVASCULAR: Normal rate, regular rhythm. No murmurs. No gallops. No edema. ABDOMEN: Soft. Normal bowel sounds. MUSCULOSKELETAL: Baseline range of motion and strength. No tenderness. SKIN: Warm, intact. No pallor. No rash. No redness. Peripheral pulses are present. Capillary refill seems to be intact. NEURO: No evidence of any new focal weakness. Baseline speech. Cranial nerves seems to be intact. PSYCH: The patient has a good mood. No anxiety. Optimal judgment. DIAGNOSTIC STUDIES: EKG was reviewed. The patient has normal sinus rhythm with ventricular rate 79, IN 104, QRS 72, QT corrected 547. CT angio of the chest was done. The patient has no CTA evidence of pulmonary embolism, small noncalcified right lung nodules measuring 0.6 cm. Please consider followup CT chest in 6 months. Small bilateral pleural effusions with no evident etiology. Chest x-ray was done. The patient has new small bilateral pleural effusion. LABORATORY DATA: Labs were reviewed. The patient has a white count of 13.4, hemoglobin 11.3, MCV 91, platelet count 113. Coagulation; PT 12.7, INR 0.9, PTT 28.8. D-dimer 5.65. Chemistry; sodium was 140, potassium 3.5, chloride 105, carbon dioxide 26, anion gap 13, BUN 8, creatinine 0.8, GFR 74, glucose 76. Hemoglobin A1c 5.5. Lactic acid 1.7, calcium 8.6, total bilirubin 1.3, direct bilirubin to 1.0, AST 50, ALT 102, alkaline phosphatase 193. CK 108. Troponin was 0.039. ASSESSMENT AND PLAN: The patient will be placed in the hospital for following medical problems: 1. Chest pain. Rule out acute coronary syndrome. The patient has substernal chest pain with a normal CT angio. Troponin has been indeterminate in the range of 0.046, 0.042, 0.039. We will consult Cardiology for earlier plan, possible stress test. 2. Leukocytosis with white count 13.4. Unclear etiology. We will monitor. We will treat accordingly. 3. Positive D-dimer: The patient has normal CT angio. 4. DVT prophylaxis. Job ID: [id number]
[2018-11-17] MEDS: Benzonatate 100 MG CAP PO PRN ×3 (06:05→20:30)
[2018-11-17] MEDS: Nitroglycerin 2% Ointment 1 INCH/1 GM Packet TOP SCH (06:05)
[2018-11-17] MEDS: Metoprolol Tartrate 50 MG TAB PO SCH ×2 (09:28→20:30)
[2018-11-17] MEDS ORDERED: Sodium Chloride 0.9% 1,000 ML IV SCH (11:15)
[2018-11-17] MEDS: Acetaminophen 325 MG TAB PO PRN ×2 (11:58→20:30)
--- NOTE | 2018-11-17 15:46 | PDOC.PN ---
- Subjective Encounter Start Date: 11/17/18 Encounter Start Time: 10:20 Pt seen for followup re: chest pain. Reports chest pain is better, mild soreness over left shoulder. - Objective MAR Reviewed: Yes Vital Signs & Weight: Vital Signs (12 hours) Temp Pulse Resp BP Pulse Ox 11/17/18 11:48 99 F 95 20 169/85 H 94 L 11/17/18 11:19 70 16 96 11/17/18 07:32 98.8 F 106 H 18 162/77 H 96 11/17/18 04:22 95 11/17/18 03:53 98.4 F 95 18 147/81 H 94 L Weight Weight 127 lb 8 oz I&O: 11/16/18 11/17/18 11/18/18 06:59 06:59 06:59 Intake Total 200 Balance 200 Result Diagrams: 11/16/18 19:20 EKG Reviewed by me: Yes (Tele: NSR) Phys Exam - Physical Examination Constitutional: NAD HEENT: moist MMs Neck: supple Respiratory: clear to auscultation bilateral Cardiovascular: RRR Gastrointestinal: soft Neurological: moves all 4 limbs Psychiatric: normal affect Dx/Plan (1) Chest pain Code(s): R07.9 - CHEST PAIN, UNSPECIFIED Status: Acute Comment: await stress test (2) Hypertension Code(s): I10 - ESSENTIAL (PRIMARY) HYPERTENSION Status: Chronic Comment: monitor vital signs, titrate antihypertensives as needed - Plan * . Review of Systems - Review of Systems Respiratory: negative: Cough, Shortness of Breath, SOB with Excertion, Pleuritic Pain, Wheezing Cardiovascular: chest pain. negative: palpitations, orthopnea, paroxysmal nocturnal dyspnea, edema, light headedness Musculoskeletal: Shoulder Pain - Medications/Allergies Allergies/Adverse Reactions: Allergies Allergy/AdvReac Type Severity Reaction Status Date / Time naproxen [From Aleve] Allergy Severe Anaphylaxis Verified 11/16/18 21:16 Medications: Current Medications Acetaminophen (Tylenol) 650 mg PO Q4H PRN PRN Reason: Headache/Fever or Pain Last Admin: 11/17/18 11:58 Dose: 650 mg Albuterol/Ipratropium (Duoneb) 3 ml NEB [id number] PRN PRN Reason: SOB &/or Wheezing Last Admin: 11/17/18 11:19 Dose: 3 ml Benzonatate (Tessalon) 100 mg PO TIDPRN PRN PRN Reason: Cough Last Admin: 11/17/18 12:02 Dose: 100 mg Sodium Chloride (Normal Saline 0.9%) 1,000 mls @ 0 mls/hr IV .Q0M [facility] Levofloxacin (Levaquin) 500 mg PO 0600 [facility] Last Admin: 11/17/18 06:05 Dose: 500 mg Metoprolol Tartrate (Lopressor) 50 mg PO BID [facility] Last Admin: 11/17/18 09:28 Dose: 50 mg Trazodone HCl (Desyrel) 50 mg PO HS MARY
[2018-11-17] MEDS ORDERED: hydrALAZINE 20 MG/ML VIAL SLOW IVP PRN ×2 (17:36→20:06)
[2018-11-17] MEDS ORDERED: traZODone HCl 50 MG TAB PO SCH (21:00)
[2018-11-18] MEDS: Guaifenesin DM 100-10/5 ML UDCUP PO PRN ×2 (02:19→08:19)
[2018-11-18] MEDS: Metoprolol Tartrate 50 MG TAB PO SCH (08:19)
[2018-11-18] MEDS ORDERED: Regadenoson 0.4 MG/5 ML SYRINGE ONE (10:20)
[2018-11-18] MEDS: Acetaminophen 325 MG TAB PO PRN (15:18)
--- NOTE | 2018-11-18 16:06 | NM ---
MYOCARDIAL PERFUSION AND QUANTITATIVE GATED SPECT STUDY: HISTORY: Patient with chest pain. DOSE: Technetium 99m Cardiolite 30.8 millicuries for the stress portion of the exam, and 9.8 millicuries fo r the resting portion of the exam. TECHNIQUE: The patient was stressed using 0.4 mg of Lexiscan given IV. Multiplanar quantitative gated SPECT images were performed. FINDINGS: No definite evidence of reversible defect seen. No evidence of wall motion abnormalities seen. No e vidence of myocardial ischemia or scar seen. Ejection fraction measures 72%. IMPRESSION: Normal myocardial perfusion and quantitative gated SPECT study. POS: IRWIN
[2018-11-18 16:16] VITALS: BP 163/83; TEMP 97.6
--- NOTE | 2018-11-19 03:58 | DIS ---
DATE OF ADMISSION: 11/16/2018 DATE OF DISCHARGE: 11/18/2018 PRIMARY CARE PROVIDER: Jethro Diaz MD DISCHARGE DIAGNOSES: 1. Chest pain. 2. Likely musculoskeletal etiology for chest pain. 3. Pulmonary nodules. CONDITION OF PATIENT ON THE DAY OF DISCHARGE: Stable. I assessed Ms. Olson on the day of discharge. She denies any chest pain or shortness of breath. Vital signs are stable. S1 and S2 are heard, regular. Lungs are clear to auscultation bilaterally. DISCHARGE MEDICATIONS: No change was made to her pre-admission home medications, which consist of, 1. ProAir HFA p.r.n. 2. Metoprolol tartrate 50 mg 2 times a day. 3. Trazodone 50 mg at bedtime. 4. Levofloxacin 500 mg daily. HOSPITAL COURSE: Ms. Olson is a pleasant 53-year-old lady who was admitted to [facility] on November 16, 2018, for chest pain. Please refer to Dr. London's history and physical note dated November 17, 2018, for further details regarding this admission. Prior to admission, she had CT angiogram of the chest, which did not show any evidence of pulmonary embolism. She had small bilateral pleural effusions. Of note, she has small noncalcified right lung nodules measuring up to 0.6 cm. Radiologist recommended considering followup CT chest in 6 months to evaluate for stability. She has been advised to follow up for the same with her primary care provider's office. Her chest pain resolved during this hospitalization. On November 18, she had nuclear stress test, which was normal. Left ventricular ejection fraction was 72%. Her chest pain resolved, and she is being discharged home in a stable condition. Many thanks for allowing me to participate in your patient's care. Please feel free to contact me with any questions or concerns. DISCHARGE DESTINATION: Home. Job ID: [id number]
== END 2018-11-18 18:26 | disposition home or self-care (01) ==
LOC: ERS 17:48 → 2SW 18:56
PROVIDERS: ADMIT Hospitalist; ATTEND Hospitalist
DX: R07.9 Chest pain, unspecified (principal); R91.1 Solitary pulmonary nodule; I10 Essential (primary) hypertension; G47.00 Insomnia, unspecified; J45.909 Unspecified asthma, uncomplicated; F32.9 Major depressive disorder, single episode, unspecified; Z90.49 Acquired absence of other specified parts of digestive tract; Z88.6 Allergy status to analgesic agent; Z79.2 Long term (current) use of antibiotics; Z79.899 Other long term (current) drug therapy; Z98.890 Other specified postprocedural states
CPT/HCPCS: 36415; 78452; 93005; 93017; 94640; 96374; 96376; A9500; G0378; J0360; J2785; J7620

== ENCOUNTER 2019-10-18 06:06 | Day surgery (SDC) | payer SELFPAY ==
[2019-10-17 11:23] VITALS: BMI 21.0
[2019-10-18] MEDS ORDERED: Iothalamate Meglumine 60% 50 ML VIAL FS ONE (07:10)
[2019-10-18] MEDS ORDERED: Fentanyl 100 MCG/2 ML VIAL ONE (08:14)
--- NOTE | 2019-10-18 08:24 | HP ---
HISTORY: A 54-year-old female who has had previous cholecystectomy many years ago. The patient also has history of gallstones from before. The patient has had multiple ERCPs in the past for common bile duct stone. This all were done somewhere in [place], [place]. The last time she was here in October-November of 2018 with abdominal pain, cholangitis, pancreatitis. She had an ERCP done, which revealed large common bile duct stone, which could not be removed. She underwent a stent placement. The plan was to bring her back after one month to remove the stent and take the stone out. Unfortunately, due to lack of financial resources and reasons, she did not come back. She was seen by me one time in my office and I tried to get her back to come back for an ERCP. However, she was not able to get insurance and kept postponing the ERCP. The patient finally agreed to come for ERCP and continuation of medical care. The patient has no abdominal pain. No nausea, vomiting. She is totally asymptomatic. MEDICAL ILLNESSES: 1. Common bile duct stone. 2. Pancreatitis in 2019. 3. Cholangitis in 2019. ALLERGIES: NONE. PHYSICAL EXAMINATION: GENERAL: She appears comfortable. VITAL SIGNS: Pulse is 70, blood pressure 130/70. HEENT: Conjunctivae clear. CARDIOVASCULAR SYSTEM: First and second sounds heard. LUNGS: Clear to auscultation. ABDOMEN: Soft to palpate. No organomegaly. No tenderness. No masses. ADMITTING DIAGNOSIS: Gallstone pancreatitis in October 2018, status post stent placement. An ERCP in October 2018 was only very large common bile duct stone The stone was not removed and had a stent placement done. The patient could not come back to me until now for repeat ERCP. The plan is to do an ERCP to remove the common bile duct stent and also try to take the common bile duct stone out. The patient fully understands the risks involved to include pancreatitis, sepsis, bleeding, bowel perforation. Job ID: [id number]
[2019-10-18] MEDS ORDERED: Indomethacin 50 MG SUPP ONE (08:31)
[2019-10-18] MEDS ORDERED: hydrALAZINE 20 MG/ML VIAL ONE (09:12)
[2019-10-18] MEDS ORDERED: Glycopyrrolate 0.2 MG/ML 5 ML SYRINGE ONE (09:26)
[2019-10-18] MEDS ORDERED: Rocuronium Bromide 10 MG/ML (10ML VIAL) ONE (09:26)
[2019-10-18] MEDS ORDERED: Ondansetron PF 4 MG/2 ML Vial ONE (09:26)
[2019-10-18] MEDS ORDERED: Esmolol 100 MG/10 ML VIAL ONE (09:26)
[2019-10-18] MEDS ORDERED: Lidocaine 1% PF 5 ML VIAL ONE (09:26)
[2019-10-18] MEDS ORDERED: PROPOFOL 200 MG/20 ML VIAL ONE (09:26)
--- NOTE | 2019-10-18 10:18 | RAD ---
XR ERCP HISTORY: History of biliary stent. COMPARISON: ERCP examination of 11/13/2018. FINDINGS: Contrast is injected into a dilated common bile duct. There is also opacification the left hepatic duct but no opacification the right hepatic duct. There is air present within the biliary tree. Given the difference in degrees of contrast opacification the appearance is fairly similar to t he previous study. IMPRESSION: Nonopacification of the right biliary ductal system with a dilated common bile duct.
--- NOTE | 2019-10-21 10:16 | OP ---
DATE OF PROCEDURE: 10/18/2019 PROCEDURES PERFORMED: 1. Endoscopic retrograde cholangiopancreatography with removal of bile duct stent. 2. Endoscopic retrograde cholangiopancreatography with removal of bile duct stone with a size 12 to 15 mm biliary balloon. PREOPERATIVE DIAGNOSIS: Common bile duct stone. POSTOPERATIVE DIAGNOSIS: Common bile duct stone. DESCRIPTION OF PROCEDURE: The patient was intubated and was given sedation by Anesthesia Department. The patient was transferred from the stretcher to the fluoroscopy table and was placed on stomach. A bite block was placed. A Pentax video duodenoscope under direct vision passed down the oropharynx past the GE junction into the stomach and subsequently descending duodenum. The scope kept looping up. I could not reach papilla with the short route. The long route was used to the papilla. The previously placed bile duct stent placement seems to be migrating into outside. The stent was removed with polypectomy snare. The scope removed. The patient was rescoped again. There was no bile drainage noted at the papilla. With the previous papillotomy, the papilla was wide open. Again, I could not really cannulate over the short route and was cannulated over a long route because the scope kept looping up. Although, I tried several times to try to maneuver the scope into the short position by withdrawing scope.,the scope fell back in to the stomach . The cannulation achieved over the papillotome. It does showed dilated bile duct. There was a filling defect at the margin close to the papilla.. The papillotome was removed. The biliary balloon size 12 to 15 mm advanced in the bile duct over the guidewire. The balloon was inflated and brought out and a large pigmented stone measuring 2 cm removed. Following removal of the gallstone, there was brisk drainage of contrast noted. The duct was swept three more times. At the end of the procedure, there was no filling defect seen by occlusion cholangiogram. The balloon was removed and there was prompt emptying of the common bile duct contents. The stomach decompressed and the scope removed. DISCHARGE PLANNING: This is a very pleasant 54-year-old female, who has had a previous gallbladder surgery and has had multiple ERCPs in [place] and common bile duct stone. She was hospitalized here in October of 2018 because of gallstone pancreatitis. She has cholangitis also. She underwent ERCP that revealed a large stone seen but could not really remove stone. So bile duct stent was placed. The patient did not come back until now for repeat ERCP. She underwent ERCP with removal of large common bile duct stone. The stone was 2 cm. I saw the patient in the postop care unit and she was doing well. She is asymptomatic. She has no abdominal pain. No nausea or vomiting. The patient is discharged back home. The patient instructed to call me if she develops abdominal pain, fever, or any other problem like vomiting or having black stool. In the absence of any other symptoms, she will come back to me in 3 weeks. Job ID: [id number] MTDD
== END 2019-10-18 11:20 | disposition home or self-care (01) ==
LOC: CANPRESDC → SDC 06:06
PROVIDERS: ATTEND Internal Medicine Gastroenterology
PROC: 0FPB8DZ Removal of Intraluminal Device from Hepatobiliary Duct, Via Natural or Artificial Opening Endoscopic (ICD-10-PCS; principal; 2019-10-18)
PROC: 0FC98ZZ Extirpation of Matter from Common Bile Duct, Via Natural or Artificial Opening Endoscopic (ICD-10-PCS; principal; 2019-10-18)
DX: K80.50 Calculus of bile duct without cholangitis or cholecystitis without obstruction (principal); Z79.899 Other long term (current) drug therapy; Z88.6 Allergy status to analgesic agent; Z90.49 Acquired absence of other specified parts of digestive tract
CPT/HCPCS: 74330; J0360; J2001; J2405; J2704; J3010